=== PATIENT | female | born 1995 | race Caucasian/White ===

== ENCOUNTER 2022-05-24 02:35 | Observation (INO) | payer OTHER ==
[~2022-05-24 02:35] MED LIST: HYDROCODON-ACE1 EAC4 PO; NORCO 5-325 TA1 EACH PO
[2022-05-24 03:52] LABS: HEMOGLOBIN 15.2 gm/dl (12.3-15.3); RED BLOOD COUNT 4.54 M/UL (4.00-5.10); WHITE BLOOD COUNT 14.7 K/UL (4.5-11.0)
[2022-05-24 04:03] LABS: BUN/CREATININE RATIO 24 (0-10)
== END 2022-05-25 16:00 | disposition left against medical advice (07) ==
LOC: ER1 02:35 → CDU 04:58
PROVIDERS: Family Medicine; ADMIT Surgery
PROC: 0DTJ4ZZ Resection of Appendix, Percutaneous Endoscopic Approach (ICD-10-PCS; principal; 2022-05-24 12:00)
DX: K35.30 Acute appendicitis with localized peritonitis, without perforation or gangrene (principal); F17.210 Nicotine dependence, cigarettes, uncomplicated; E66.9 Obesity, unspecified; Z88.2 Allergy status to sulfonamides
CPT/HCPCS: 80053; 81001; 83690; 84703; 85025; 96374; 96375; 96376; 99285; G0378; J1100; J1170; J1335; J1885; J2001; J2250; J2270; J2405; J2543; J2704; J3010; Q9967